=== PATIENT | female | born 1940 | race Caucasian/White ===

== ENCOUNTER 2016-07-08 09:32 | Day surgery (SDC) | payer BC, MEDICARE ==
[~2016-07-08 09:32] MED LIST: Lactated Ringers 1,000 ML IV SCH
[2016-07-08] MEDS ORDERED: Propofol 200 MG/20 ML SDV ONE ×2 (10:50→12:15)
[2016-07-08 13:39] VITALS: BP 132/95
--- NOTE | 2016-07-08 22:10 | OR ---
DATE OF SURGERY: 07/08/2016. REFERRING PROVIDER: Ban Shah MD. PRE-OPERATIVE DIAGNOSES: Positive FIT stool card. This is the patient's first colonoscopy. There is no known family history of colon cancer or colon polyps. POST-OPERATIVE DIAGNOSES: 1. Ten small polyps removed. a. a. 2 mm x 3 at 115 cm (at entry to the cecum). These were removed with cold forceps. b. b. 2 mm at 110 cm removed with cold forceps. c. c. 2 mm at 95 cm removed with cold forceps. d. d. 2 mm at 90 cm, removed with cold forceps. e. e. 6 mm at 70 cm, removed with hot snare. f. f. 5 mm at 25 cm removed with hot snare. g. g. 2 mm x 2 at 20 cm, removed with cold forceps. 2. Moderate sigmoid diverticulosis. 3. Narrowing of colon at 30 cm resulting in a little difficulty getting the scope past this portion. Once by this portion of the colon, scope went smoothly. PROCEDURE: Colonoscopy with polypectomy x10 (2 using hot snare and 8 using cold forceps). SURGEON: Robles Esparza M.D. ANESTHESIA: Monitored anesthesia care. BOWEL PREP: Good. Adriana is a 76-year-old female who was brought to the endoscopy suite after discussing risks and benefits of the procedure. Informed consent was obtained for conscious sedation and colonoscopy with or without biopsy and/or polypectomy. We also discussed possibility of missed lesions. Pre-procedure exam was unremarkable. IV, oxygen, and monitors were placed. The patient was placed in the left lateral decubitus position. Sedation was administered and a digital rectal exam was performed which was unremarkable. Colonoscope was passed into the rectum and slowly advanced all the way to the cecum. There was a tight, narrow spot at about 30 cm from the anal verge, which was little difficult to navigate the scope by initially. Once by this part, remainder of colon was easy to navigate. Cecum was viewed and photographed. At the entry to the cecum, there was noted to be three 2 mm polyps, which were removed using cold forceps. There was also 2 mm polyp noted at 110 cm in the ascending colon, which was removed with cold forceps. The transverse colon was remarkable for 2 mm at 95 cm, 2 mm at 90 cm, and 6 mm at 70 cm. These first two were removed with cold forceps with the 6 mm polyp removed with hot snare. The descending colon was unremarkable. The sigmoid colon revealed some moderate diverticulosis as well as a 5 mm polyp at 25 cm which was removed with hot snare. There was also a 2 mm polyp x2 at 20 cm, removed with cold forceps. Retroflexion was performed. Rectal mucosa unremarkable. Scope was removed. The patient tolerated the procedure well. The patient was monitored until that baseline status. Discharge instructions were reviewed and the patient was discharged in good condition. COMPLICATIONS: None. TOTAL TIME: 36 minutes. ESTIMATED BLOOD LOSS: About 1 mL. RECOMMENDATIONS/FOLLOW-UP: We will await results of Path report to determine ideal followup interval. I would like to kindly thank Dr. Shah for this referral. DMB: 07/08/2016 13:55:55 MODL: 07/08/2016 22:04:07 /[id number]
== END 2016-07-08 13:44 | disposition home or self-care (01) ==
LOC: VM.SDS 09:32
PROVIDERS: ATTEND Family Medicine
DX: D12.2 Benign neoplasm of ascending colon (principal); D12.0 Benign neoplasm of cecum; D12.3 Benign neoplasm of transverse colon; D12.5 Benign neoplasm of sigmoid colon; K63.5 Polyp of colon; K57.30 Diverticulosis of large intestine without perforation or abscess without bleeding; G43.109 Migraine with aura, not intractable, without status migrainosus; F17.210 Nicotine dependence, cigarettes, uncomplicated; Z78.0 Asymptomatic menopausal state; Z90.49 Acquired absence of other specified parts of digestive tract; Z98.51 Tubal ligation status; Z98.41 Cataract extraction status, right eye; Z98.42 Cataract extraction status, left eye; Z98.890 Other specified postprocedural states
CPT/HCPCS: 00810; 45380; 45385; J2704; J7120; 88305